=== PATIENT | male | born 1990 | race African-American/Black ===

== ENCOUNTER 2018-07-18 13:34 | Emergency (ER) | payer MEDICAID ==
[~2018-07-18] VITALS: Ht 162.6 cm; Wt 65.0 kg
[2018-07-18 13:39] VITALS: BP 119/79
== END 2018-07-18 15:30 | disposition home or self-care (01) ==
LOC: ER 13:34
DX: J06.9 Acute upper respiratory infection, unspecified (principal); R07.81 Pleurodynia
CPT/HCPCS: 99283

== ENCOUNTER 2019-07-22 14:09 | Emergency (ER) | payer MEDICAID, OTHER ==
[~2019-07-22] VITALS: Ht 162.6 cm; Wt 71.0 kg
[2019-07-22] MEDS ORDERED: ONDANSETRON HCL 4MG/2ML INJ IV STA (15:23)
[2019-07-22] MEDS ORDERED: SODIUM CHLORIDE 0.9% 1,000 ML IV ONE (15:23)
[2019-07-22] MEDS ORDERED: ACETAMINOPHEN 500MG TABLET PO ONE (15:30)
[2019-07-22 15:47] LABS: BASOPHILS % 0.8 % (0.0-2.0); EOSINOPHILS % 3.6 % (0.0-5.0); HEMOGLOBIN. 15.2 g/dL (14.0-18.0); LYMPHOCYTES % 19.5 % (20.0-50.0); MEAN CORPUSCULAR HEMOGLOBIN 28.5 pg (28.0-32.0); MEAN CORPUSCULAR VOLUME 84.2 fL (80.0-94.0); MEAN PLATELET VOLUME 9.2 fl (7.4-10.4); MONOCYTES % 8.6 % (2.0-8.0); NEUTROPHILS % 67.5 % (40.0-76.0); PLATELET 210 x1000/uL (130-400); RED BLOOD CELL COUNT 5.35 mill/uL (4.7-6.1); RED CELL DISTRIBUTION WIDTH 14.5 % (11.6-14.6)
[2019-07-22 15:49] LABS: CHLORIDE 107 mEq/L (98-107)
[2019-07-22 16:26] VITALS: BP 122/70
== END 2019-07-22 16:29 | disposition home or self-care (01) ==
LOC: ER 14:09
DX: R11.2 Nausea with vomiting, unspecified (principal); R19.7 Diarrhea, unspecified
CPT/HCPCS: 36415; 80053; 83690; 85025; 96361; 96374; 99283; J2405; J7030; Z7610